=== PATIENT | male | born 1975 | race Two or more races ===

== ENCOUNTER 2020-08-14 14:48 | Emergency (ER) | payer MEDICAID ==
[~2020-08-14] VITALS: Ht 170.2 cm; Wt 83.9 kg
[2020-08-14 14:48] VITALS: BP_SYST 143
[2020-08-14] MEDS ORDERED: SULF1TAB48 PO (15:23)
[2020-08-14] MEDS ORDERED: IBUP-1969 PO (15:23)
[2020-08-14 15:55] VITALS: BP_SYST 143
== END 2020-08-14 15:55 | disposition home or self-care (01) ==
LOC: SED 14:48
DX: L08.9 Local infection of the skin and subcutaneous tissue, unspecified (principal); I10 Essential (primary) hypertension; Z79.899 Other long term (current) drug therapy
CPT/HCPCS: 87070-TC; 99283

== ENCOUNTER 2020-08-17 20:06 | Emergency (ER) | payer MEDICAID ==
[~2020-08-17] VITALS: Ht 165.1 cm; Wt 83.9 kg
[~2020-08-17 20:06] MED LIST: IBUP-1969 PO; SULF1TAB48 PO
[2020-08-17 20:20] VITALS: BP_SYST 135
[2020-08-17] MEDS ORDERED: KETOROLAC TROMETHAMINE 15 MG VIAL IVP ONE (20:45)
[2020-08-17] MEDS ORDERED: NACL 0.9% 1,000 ML IV ONE (20:45)
[2020-08-17] MEDS ORDERED: PROCHLORPERAZINE EDISYLATE 10 MG/2 ML VIAL IVP ONE (20:45)
[2020-08-17] MEDS ORDERED: DIPHENHYDRAMINE HCL 50 MG CAPSULE PO ONE (20:45)
[2020-08-17 21:08] LABS: WHITE BLOOD COUNT (AUTO) 7.3 K/uL (4.8-10.8)
[2020-08-17 21:19] LABS: BASOPHILS # (AUTO) 0.1 K/uL (0.0-0.2); BASOPHILS % (AUTO) 0.7 % (0.0-2.0); EOSINOPHILS # (AUTO) 0.1 K/uL (0.0-0.4); EOSINOPHILS % (AUTO) 1.2 % (0.0-4.0); HEMATOCRIT 45.8 % (36-54); HEMOGLOBIN 15.3 g/dL (14.0-18.0); LYMPHOCYTES # (AUTO) 2.4 K/uL (1.0-5.5); LYMPHOCYTES % (AUTO) 33.3 % (20.5-51.5); MEAN CORPUSCULAR HEMOGLOBIN 22 pg (27-31); MEAN CORPUSCULAR HGB CONC 33 % (32-36); MEAN CORPUSCULAR VOLUME 66 fL (79.0-98.0); MONOCYTES # (AUTO) 0.5 K/uL (0.0-1.0); MONOCYTES % (AUTO) 6.6 % (1.7-9.3); NEUTROPHILS # (AUTO) 4.3 K/uL (1.8-7.7); NEUTROPHILS % (AUTO) 58.2 % (40.0-70.0); PLATELET COUNT (AUTO) 280 K/uL (130-430); RED BLOOD CELL COUNT(AUTO) 6.95 MIL/uL (4.2-6.2); RED CELL DISTRIBUTION WIDTH 14.9 % (9.0-15.0)
[2020-08-17 21:22] LABS: CALCIUM 9.4 mg/dL (8.4-11.0); CREATININE 1.16 mg/dL (0.55-1.30); POTASSIUM 3.9 mmol/L (3.5-5.1)
[2020-08-17 21:25] LABS: PROTHROMBIN TIME 9.9 SECS (9.5-12.5)
[2020-08-17 21:27] LABS: ALBUMIN 4.4 g/dL (3.4-4.8); BILIRUBIN,DIRECT 0.2 mg/dL (0.0-0.3); TOTAL BILIRUBIN 0.7 mg/dL (0.0-1.0)
[2020-08-17] MEDS ORDERED: IOHEXOL 350 mgI/mL, 150 ML INFUS..BTL IV ONE (21:27)
[2020-08-17 22:50] VITALS: BP_SYST 135
== END 2020-08-17 22:50 | disposition home or self-care (01) ==
LOC: SED 20:06
DX: R51.9 Headache, unspecified (principal)
CPT/HCPCS: 36415; 70450; 70487; 70496; 76376; 80048; 80076; 85025; 85610; 96361; 96374; 96375; 99285; J0780; J1885; J7030; Q0163; Q9967

== ENCOUNTER 2020-09-21 20:13 | Emergency (ER) | payer MEDICAID ==
[~2020-09-21] VITALS: Ht 167.6 cm; Wt 83.0 kg
[2020-09-21 20:38] VITALS: BP_SYST 112
[2020-09-21 21:18] LABS: BILIRUBIN,URINE NEGATIVE (NEGATIVE); CLARITY/URINE CLEAR (CLEAR); COLOR,URINE YELLOW (YELLOW); GLUCOSE,URINE NEGATIVE (NEGATIVE); KETONES,URINE TRACE (NEGATIVE); LEUKOCYTE ESTERASE ,URINE NEGATIVE (NEGATIVE); NITRITE, URINE NEGATIVE (NEGATIVE); PH,URINE 5.5 (5.0-8.0); PROTEIN URINE NEGATIVE (NEGATIVE); UROBILINOGEN,URINE 0.2 (0.2-1.0)
[2020-09-21 21:25] LABS: BACTERIA,URINE FEW /HPF (None Seen); BLOOD, URINE TRACE (NEGATIVE); RBC,URINE NONE SEEN /HPF (0-3); WBC,URINE NONE SEEN /HPF (0-3)
[2020-09-21 21:26] LABS: MUCUS,URINE None Seen /LPF (None Seen)
[2020-09-21 21:29] LABS: BASOPHILS # (AUTO) 0.2 K/uL (0.0-0.2); BASOPHILS % (AUTO) 3.3 % (0.0-2.0); EOSINOPHILS % (AUTO) 0.3 % (0.0-4.0); HEMATOCRIT 43.5 % (36-54); HEMOGLOBIN 14.3 g/dL (14.0-18.0); LYMPHOCYTES # (AUTO) 0.7 K/uL (1.0-5.5); LYMPHOCYTES % (AUTO) 10.7 % (20.5-51.5); MEAN CORPUSCULAR HEMOGLOBIN 22 pg (27-31); MEAN CORPUSCULAR HGB CONC 33 % (32-36); MEAN CORPUSCULAR VOLUME 66 fL (79.0-98.0); MONOCYTES # (AUTO) 0.3 K/uL (0.0-1.0); MONOCYTES % (AUTO) 5.1 % (1.7-9.3); NEUTROPHILS # (AUTO) 5.1 K/uL (1.8-7.7); NEUTROPHILS % (AUTO) 80.6 % (40.0-70.0); PLATELET COUNT (AUTO) 175 K/uL (130-430); RED BLOOD CELL COUNT(AUTO) 6.55 MIL/uL (4.2-6.2); RED CELL DISTRIBUTION WIDTH 15.3 % (9.0-15.0); WHITE BLOOD COUNT (AUTO) 6.4 K/uL (4.8-10.8)
[2020-09-21 21:35] LABS: CALCIUM 8.8 mg/dL (8.4-11.0); CREATININE 1.18 mg/dL (0.55-1.30); POTASSIUM 3.9 mmol/L (3.5-5.1)
[2020-09-21 21:41] LABS: TOTAL BILIRUBIN 0.8 mg/dL (0.0-1.0)
[2020-09-21 21:43] LABS: C-REACTIVE PROTEIN QUANT 1.8 mg/dL (0-0.5)
[2020-09-21] MEDS ORDERED: IBUP-1971 PO (21:54)
[2020-09-21] MEDS ORDERED: IBUPROFEN 800 MG TABLET PO ONE (22:00)
[2020-09-21] MEDS ORDERED: cefTRIAXone 1 GM in LIDOCAINE 1%, 20 ML MDV 2.1 ML IM ONE (22:00)
[2020-09-21 22:12] LABS: AMYLASE 73 U/L (0-100); LIPASE 102 U/L (73-393)
[2020-09-21 22:16] VITALS: BP_SYST 112
== END 2020-09-21 22:16 | disposition home or self-care (01) ==
LOC: SED 20:13
DX: R50.9 Fever, unspecified (principal); M79.18 Myalgia, other site; Z79.899 Other long term (current) drug therapy
CPT/HCPCS: 36415; 71045; 80053; 81000; 82150; 83605; 83690; 85025; 86140; 96372; 99284; J0696; J2001

== ENCOUNTER 2020-09-22 14:00 | Emergency (ER) | payer MEDICAID ==
[~2020-09-22] VITALS: Ht 170.2 cm; Wt 82.6 kg
[~2020-09-22 14:00] MED LIST changes: +IBUP-1971 PO
[2020-09-22 14:07] VITALS: BP_SYST 114
[2020-09-22 14:32] VITALS: BP_SYST 114
== END 2020-09-22 14:37 | disposition home or self-care (01) ==
LOC: SED 14:00
DX: R50.9 Fever, unspecified (principal)
CPT/HCPCS: 99281

== ENCOUNTER 2022-09-25 08:02 | Emergency (ER) | payer BC, MEDICAID ==
[~2022-09-25] VITALS: Ht 167.6 cm; Wt 83.9 kg
[2022-09-25 08:18] VITALS: BP_SYST 129
[2022-09-25] MEDS ORDERED: LIDOCAINE VISCOUS 2%, 15 ML UDC MM ONE (08:45)
[2022-09-25] MEDS ORDERED: KETOROLAC TROMETHAMINE 30 MG VIAL IM ONE (08:45)
[2022-09-25] MEDS ORDERED: DEXT1LOZ PO (08:50)
[2022-09-25] MEDS ORDERED: NIRM1TAB5 PO (08:50)
[2022-09-25] MEDS ORDERED: GUAI5SYR PO (08:51)
[2022-09-25 09:23] VITALS: BP_SYST 129
== END 2022-09-25 09:24 | disposition home or self-care (01) ==
LOC: SED 08:02
DX: U07.1 COVID-19 (principal); J02.9 Acute pharyngitis, unspecified; R05.9 Cough, unspecified; M79.10 Myalgia, unspecified site; E11.9 Type 2 diabetes mellitus without complications; I10 Essential (primary) hypertension; Z79.899 Other long term (current) drug therapy
CPT/HCPCS: 99283; 87426; 36415; 96372; J2001; J1885

== ENCOUNTER 2023-12-29 19:01 | Emergency (ER) | payer BC, MEDICAID ==
[~2023-12-29] VITALS: Ht 167.6 cm; Wt 77.1 kg
[~2023-12-29 19:01] MED LIST changes: +DEXT1LOZ PO; +GUAI5SYR PO; +NIRM1TAB5 PO
[2023-12-29 19:18] VITALS: BP_SYST 116; PULSE 78; RESP 16; TEMP 97.7; O2SAT 100
[2023-12-29] MEDS: KETOROLAC TROMETHAMINE 60 MG/2 ML VIAL IM ONE (20:58)
[2023-12-29] MEDS ORDERED: NAPR-690 PO (21:35)
[2023-12-29 21:45] VITALS: BP_SYST 140; PULSE 84; RESP 20; TEMP 97.8; O2SAT 98
== END 2023-12-29 21:45 | disposition home or self-care (01) ==
LOC: SED 19:01
DX: S13.8XXA Sprain of joints and ligaments of other parts of neck, initial encounter (principal); S33.5XXA Sprain of ligaments of lumbar spine, initial encounter; S50.12XA Contusion of left forearm, initial encounter; S50.11XA Contusion of right forearm, initial encounter; I10 Essential (primary) hypertension; E11.9 Type 2 diabetes mellitus without complications; Z79.899 Other long term (current) drug therapy; Z79.2 Long term (current) use of antibiotics; V89.2XXA Person injured in unspecified motor-vehicle accident, traffic, initial encounter; Y93.89 Activity, other specified; Y92.89 Other specified places as the place of occurrence of the external cause; Y99.8 Other external cause status
CPT/HCPCS: 99284; 72040; 72100; 73090; 96372; J1885